=== PATIENT | male | born 1990 | race African-American/Black ===

== ENCOUNTER 2017-03-29 00:44 | Emergency (ER) | payer SELFPAY ==
[~2017-03-29] VITALS: Ht 182.9 cm; Wt 152.5 kg
[2017-03-29 00:51] VITALS: BP 163/103
== END 2017-03-29 01:20 | disposition home or self-care (01) ==
LOC: EME 00:44
DX: S30.813A Abrasion of scrotum and testes, initial encounter (principal); F41.9 Anxiety disorder, unspecified; X58.XXXA Exposure to other specified factors, initial encounter; Y93.E1 Activity, personal bathing and showering
CPT/HCPCS: 99281; 99283